=== PATIENT | female | born 1970 | race Caucasian/White ===

== ENCOUNTER 2019-02-16 10:46 | Emergency (ER) | payer MEDICAID ==
[2019-02-16] MEDS: IPRATROPIUM (NEB) 0.5 MG/2.5 ML AMP NEB (13:20)
[2019-02-16] MEDS: ALBUTEROL 0.083% (NEB) 2.5 MG/3 ML AMP NEB (13:20)
== END 2019-02-16 13:53 | disposition home or self-care (01) ==
LOC: FTE 10:46
DX: J45.21 Mild intermittent asthma with (acute) exacerbation (principal)
CPT/HCPCS: 94664; 99283-25